=== PATIENT | female | born 2000 | race Caucasian/White ===

== ENCOUNTER 2021-02-05 22:16 | Emergency (ER) | payer OTHER, SELFPAY ==
[2021-02-05 22:24] VITALS: BP 140/88; PULSE 85; RESP 16; TEMP 36.9; O2SAT 97; BMI 28.3
[2021-02-06 00:08] VITALS: BP 118/58; PULSE 69; RESP 12; O2SAT 99
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
== END 2021-02-06 00:09 | disposition home or self-care (01) ==
PROVIDERS: Emergency Provider Emergency Medicine
DX: S06.0X0A Concussion without loss of consciousness, initial encounter (principal); S46.912A Strain of unspecified muscle, fascia and tendon at shoulder and upper arm level, left arm, initial encounter; V89.2XXA Person injured in unspecified motor-vehicle accident, traffic, initial encounter
CPT/HCPCS: 99281